=== PATIENT | female | born 1970 | race Two or more races ===

== ENCOUNTER 2017-12-25 17:15 | Emergency (ER) | payer BC ==
[~2017-12-25] VITALS: Ht 162.6 cm; Wt 59.4 kg
[2017-12-25] MEDS ORDERED: NAPR-683 PO (17:38)
[2017-12-25] MEDS ORDERED: TRAM-48 PO (17:38)
--- NOTE | 2017-12-25 17:42 | PHYS DOC ---
Adult General Chief Complaint Chief Complaint: LOWER EXT PAIN HPI HPI 47-year-old male patient complaining of right knee pain for the last 1 week that getting worse with movement. 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 She denies chest pain, chills, focal neuro deficit. Patient states she took [id number] Aleve and did not get better with her pain and rated her pain 10 over 10. Review of Systems Review of Systems Constitutional: Denies fever or chills [] Eyes: Denies change in visual acuity, redness, or eye pain [] HENT: Denies nasal congestion or sore throat [] Respiratory: Denies cough or shortness of breath [] Cardiovascular: No additional information not addressed in HPI [] GI: Denies abdominal pain, nausea, vomiting, bloody stools or diarrhea [] : Denies dysuria or hematuria [] Musculoskeletal: Denies back pain, reports joint pain [] Integument: Denies rash or skin lesions [] Neurologic: Denies headache, focal weakness or sensory changes [] Endocrine: Denies polyuria or polydipsia [] All other systems were reviewed and found to be within normal limits, except as documented in this note. Allergies Allergies Allergies Coded Allergies Type Severity Reaction Last Updated Verified povidone-iodine Allergy Intermediate rash 12/25/17 Yes soap Allergy Intermediate rash 12/25/17 Yes Physical Exam Physical Exam Constitutional: Well developed, well nourished, mild distress, non-toxic appearance. [] HENT: Normocephalic, atraumatic Eyes: PERRLA, EOMI, conjunctiva normal, no discharge. [] Neck: Normal range of motion, no tenderness, supple, no stridor. [] Cardiovascular:Heart rate regular rhythm, no murmur [] Lungs & Thorax: Bilateral breath sounds clear to auscultation [] Extremities: Right knee with [id number] effusion without deformity, painful range of motion of right knee without neurovascular deficit . Neurologic: Alert and oriented X 3, normal motor function, normal sensory function, no focal deficits noted. [] Psychologic: Affect normal, judgement normal, mood normal. [] EKG EKG [] Radiology/Procedures Radiology/Procedures [][address] [address] IMAGING REPORT Signed PATIENT: CHICO HERNANDEZ ACCOUNT: [id number] : 1970 LOCATION: ER AGE: 47 SEX: F EXAM STATUS: REG ER ORD. PHYSICIAN: AWAIS DÍAZ MD REASON: pain PROCEDURE: KNEE RIGHT 4V 4 views right knee AP lateral oblique and sunrise views HISTORY: Swelling and pain The visualized osseous structures appear normal. There is a effusion seen on lateral view. IMPRESSION: 1. No evidence of fracture. 2. Joint effusion. Consider possible ACL tear. Electronically signed by: Dalia Timmons III, MD (12/25/2017 10:26 PM) [facility] DICTATED AND SIGNED BY: DALIA TIMMONS III, MD DATE: 12/25/172223 CC: SAL HARRELL MD; AWAIS DÍAZ MD; PCP,KEERTHI ~ Course & Med Decision Making Course & Med Decision Making Pertinent Imaging studies reviewed. (See chart for details) Evaluation of patient in ER showed 47-year-old male patient with complaining of right knee pain and swelling for 1 week. Patient had right knee effusion and painful range of motion. Right knee x-ray showed joint effusion. Hussein wrap was applied and plan discharge patient home with diagnose of knee sprain. Dragon Disclaimer Dragon Disclaimer This electronic medical record was generated, in whole or in part, using a voice recognition dictation system. Departure Departure: Impression: Primary Impression: Right knee sprain Additional Impression: Knee effusion, right Disposition: 01 HOME, SELF-CARE (At 1800) Condition: IMPROVED Referrals: PCPKEERTHI (PCP) Patient Instructions: Knee Effusion, Knee Sprain Additional Instructions: Apply ice on the affected area Avoid of kneeling Follow-up with your primary care physician in 5-7 days Return to emergency room as needed Scripts Tramadol Hcl (ULTRAM) 50 Mg Tablet 50 MG PO PRN Q6HRS PRN for PAIN, #20 TAB Prov: AWAIS DÍAZ MD 12/25/17 Naproxen (NAPROSYN) 500 Mg Tablet 1 TAB PO BID, #30 TAB 1 Refill Prov: AWAIS DÍAZ MD 12/25/17 Problem Qualifiers AWAIS DÍAZ MD Dec 25, 2017 17:42 SAL HARRELL MD Dec 25, 2017 17:59
[2017-12-25] MEDS: traMADol 50 MG TABLET PO ONE (17:52)
[2017-12-25 17:55] VITALS: BP 115/83
--- NOTE | 2017-12-25 22:29 | RAD ---
4 views right knee AP lateral oblique and sunrise views HISTORY: Swelling and pain The visualized osseous structures appear normal. There is a effusion seen on lateral view. IMPRESSION: 1. No evidence of fracture. 2. Joint effusion. Consider possible ACL tear. Electronically signed by: Wilbur Harkins III, MD (12/25/2017 10:26 PM) [facility]
== END 2017-12-25 17:55 | disposition home or self-care (01) ==
LOC: ER 17:15
DX: S83.91XA Sprain of unspecified site of right knee, initial encounter (principal); X58.XXXA Exposure to other specified factors, initial encounter; Y93.89 Activity, other specified; Y99.8 Other external cause status; Y92.89 Other specified places as the place of occurrence of the external cause
CPT/HCPCS: 73564; 99284

== ENCOUNTER 2018-03-31 15:15 | Emergency (ER) | payer BC ==
[~2018-03-31] VITALS: Ht 162.6 cm; Wt 59.4 kg
[~2018-03-31 15:15] MED LIST: NAPR-683 PO; TRAM-48 PO
--- NOTE | 2018-03-31 16:12 | RAD ---
3 views right knee 03/31/2018 3:33 PM Indication: RIGHT KNEE PAIN, FELT A POP Comparison: None Findings: There is no acute fracture or dislocation. Articular surfaces are uninterrupted and smooth. Soft tissues are unremarkable. Impression: No evidence of acute osseous abnormality. Electronically signed by: Greg Peterson MD (03/31/2018 4:08 PM) [facility]
--- NOTE | 2018-03-31 16:25 | PHYS DOC ---
Past History Past Medical History: Bipolar, Depression, Hepatitis Past Surgical History: Cancer Surgery, Alcohol Use: None Drug Use: Marijuana Adult General Chief Complaint Chief Complaint: KNEE INJURY HPI HPI 47-year-old female presents with right knee pain. The patient works as a utility locate technician. She is up and down off of her knees all the time. She states that she was doing some work on the ground and was shifting laterally when she had a sudden pop feeling in her right knee. She has had this in the past but it usually goes away within a couple minutes. This time the pain is lasted more than an hour. She was unable to continue to work. She is able to walk. Patient has known osteoporosis and was concerned for a fracture. She denies any other injuries or complaints. Review of Systems Review of Systems Constitutional: Denies fever or chills [] Eyes: Denies change in visual acuity, redness, or eye pain [] HENT: Denies nasal congestion or sore throat [] Respiratory: Denies cough or shortness of breath [] Cardiovascular: No additional information not addressed in HPI [] GI: Denies abdominal pain, nausea, vomiting, bloody stools or diarrhea [] : Denies dysuria or hematuria [] Musculoskeletal: Right knee pain.[] Integument: Denies rash or skin lesions [] Neurologic: Denies headache, focal weakness or sensory changes [] Endocrine: Denies polyuria or polydipsia [] All other systems were reviewed and found to be within normal limits, except as documented in this note. Allergies Allergies Allergies Coded Allergies Type Severity Reaction Last Updated Verified povidone-iodine Allergy Intermediate rash 03/31/18 Yes soap Allergy Intermediate rash 03/31/18 Yes aspirin Allergy Unknown 03/31/18 Yes Physical Exam Physical Exam Constitutional: Well developed, well nourished, no acute distress, non-toxic appearance. [] HENT: Normocephalic, atraumatic, bilateral external ears normal, oropharynx moist, no oral exudates, nose normal. [] Eyes: PERRLA, EOMI, conjunctiva normal, no discharge. [] Neck: Normal range of motion, no tenderness, supple, no stridor. [] Cardiovascular:Heart rate regular rhythm, no murmur [] Lungs & Thorax: Bilateral breath sounds clear to auscultation [] Abdomen: Bowel sounds normal, soft, no tenderness, no masses, no pulsatile masses. [] Skin: Warm, dry, no erythema, no rash. [] Back: No tenderness, no CVA tenderness. [] Extremities: Right medial knee with slight edema. No ecchymosis or obvious deformity. Ligaments are stable. Pain with compression of the patella[] Neurologic: Alert and oriented X 3, normal motor function, normal sensory function, no focal deficits noted. [] Psychologic: Affect normal, judgement normal, mood normal. [] Current Patient Data Vital Signs Vital Signs Date Time Temp Pulse Resp B/P (MAP) Pulse Ox O2 Delivery O2 Flow Rate FiO2 03/31/18 15:15 98.0 72 18 97 Room Air EKG EKG [] Radiology/Procedures Radiology/Procedures [] Impressions: 3 views right knee 03/31/2018 3:33 PM Indication: RIGHT KNEE PAIN, FELT A POP Comparison: None Findings: There is no acute fracture or dislocation. Articular surfaces are uninterrupted and smooth. Soft tissues are unremarkable. Impression: No evidence of acute osseous abnormality. Electronically signed by: Greg Wesley MD (03/31/2018 4:08 PM) [facility] DICTATED AND SIGNED BY: GREG WELSEY MD DATE: 03/31/18 1607 CC: SHADIA SALAMANCA DO; PCP,KEERTHI ~ Course & Med Decision Making Course & Med Decision Making Pertinent Labs and Imaging studies reviewed. (See chart for details) The patient's x-rays negative. I believe she just has a contusion from shifting her weight on her knee. Given her directions for mechanics and how to minimize pressure on her knees while working. She is stable for discharge at this time. [] Dragon Disclaimer Dragon Disclaimer This electronic medical record was generated, in whole or in part, using a voice recognition dictation system. Departure Departure: Referrals: PCP,NO (PCP) SHADIA SALAMANCA DO Mar 31, 2018 16:25
[2018-03-31 16:55] VITALS: BP 107/73
== END 2018-03-31 16:55 | disposition home or self-care (01) ==
LOC: ER 15:15
DX: M25.561 Pain in right knee (principal); G89.11 Acute pain due to trauma; R60.0 Localized edema; Z88.6 Allergy status to analgesic agent; Z88.8 Allergy status to other drugs, medicaments and biological substances; Z91.041 Radiographic dye allergy status; X50.0XXA Overexertion from strenuous movement or load, initial encounter; Y93.89 Activity, other specified; Y92.89 Other specified places as the place of occurrence of the external cause; Y99.0 Civilian activity done for income or pay
CPT/HCPCS: 73564; 99284

== ENCOUNTER 2018-04-17 14:22 | Emergency (ER) | payer OTHER, BC ==
[~2018-04-17] VITALS: Ht 162.6 cm; Wt 59.4 kg
--- NOTE | 2018-04-17 14:41 | PHYS DOC ---
Past History Past Medical History: Bipolar, Depression, Hepatitis Past Surgical History: Cancer Surgery, Alcohol Use: None Drug Use: Marijuana Adult General Chief Complaint Chief Complaint: FOOT INJURY PAIN HPI HPI 47-year-old female presents emergency department after stepping on a curve yesterday and injuring her right ankle and foot. She's had sharp pain in the ankle and foot since the event. It is moderate nonradiating pain that is worse when she walks. She was able to ambulate after the event and denies any proximal pain in her hip. She denies any pain in her knee either. Review of Systems Review of Systems Review of systems is negative for knee pain or hip pain proximally. Negative for abdominal pain head injury or loss of consciousness. All other review of systems is negative. Current Medications Current Medications Current Medications Medications (Trade) Dose Ordered Sig/Christopher Start Time Stop Time Status Last Admin Dose Admin Acetaminophen (Tylenol) 650 mg 1X ONCE 04/17/18 14:45 04/17/18 14:46 UNV Allergies Allergies Allergies Coded Allergies Type Severity Reaction Last Updated Verified povidone-iodine Allergy Intermediate rash 03/31/18 Yes soap Allergy Intermediate rash 03/31/18 Yes aspirin Allergy Unknown 03/31/18 Yes Physical Exam Physical Exam Constitutional: Well developed, well nourished, no acute distress, non-toxic appearance. [] HENT: Normocephalic, atraumatic, bilateral external ears normal, oropharynx moist, no oral exudates, nose normal. [] Eyes: PERRLA, EOMI, conjunctiva normal, no discharge. [] Neck: Normal range of motion, no tenderness, supple, no stridor. [] Cardiovascular:Heart rate regular rhythm, no murmur [] Lungs & Thorax: Bilateral breath sounds clear to auscultation [] Abdomen: Bowel sounds normal, soft, no tenderness, no masses, no pulsatile masses. [] Skin: Warm, dry, no erythema, no rash. [] Back: No tenderness, no CVA tenderness. [] Extremities: On examination of the right lower extremity she has a normal- appearing foot and ankle with normal temperature to touch. No abrasions lacerations or ecchymosis. Tender along the dorsum of the foot in the distal foot, nontender in the mid and proximal foot, and tender in the lateral ankle. Patient describes a tingling sensation in the third and fourth phalanx of the right foot. Calf is nontender to touch. Proximal fibula is nontender. Knee is normal range of motion without pain. The remainder the extremities are unremarkable. The remainder the extremities are neurovascularly intact and nontender. Neurologic: Alert and oriented X 3, normal motor function, normal sensory function, no focal deficits noted. [] Psychologic: Affect normal, judgement normal, mood normal. [] EKG EKG [] Radiology/Procedures Radiology/Procedures [] Course & Med Decision Making Course & Med Decision Making Pertinent Labs and Imaging studies reviewed. (See chart for details) X-rays unremarkable. We will give the patient an ankle brace. rice therapy. f/u with pcp in 4-5 days for reexamination. Dragon Disclaimer Dragon Disclaimer This electronic medical record was generated, in whole or in part, using a voice recognition dictation system. Departure Departure: Impression: Primary Impression: Right ankle injury Additional Impression: Injury of right ankle and foot Disposition: HOME, SELF-CARE Condition: STABLE Referrals: PCP,KEERTHI (PCP) SHERRON COLON DO follow up in 4-5 days for reexamination Patient Instructions: Ankle Sprain, [id number], RICE - Routine Care for Injuries Additional Instructions: Thank you for allowing us to participate in your care today. Return to the emergency department you have any new or worsening symptoms, or if you are concerned for any reason. Return to emergency department if you have any new or concerning symptoms including but not limited to fever, chills, nausea, vomiting, intractable pain, any new rashes, chest pain, shortness of air , uncontrolled bleeding, difficulty breathing, and/or vision loss. Follow up with your primary care physician within 3 days. Call your Primary Doctor tomorrow and inform them of your visit today. If you do not have a primary care provider we are happy to provide you with a list of our primary care providers contact information. This condition should be evaluated by your primary care physician and any recommended consulting services for continued management within 2-3 days after discharge. If at any time, you are having difficulty getting into your primary care doctor or a specialist, return to the emergency department. Problem Qualifiers DEBORAH BRANDT MD Apr 17, 2018 14:41
[2018-04-17] MEDS ORDERED: ACETAMINOPHEN 325 MG TABLET PO ONE (14:45)
--- NOTE | 2018-04-17 14:58 | RAD ---
Two-view right tibia-fibula and three-view right ankle and three-view right foot dated 04/17/2018. No comparison available. CLINICAL INDICATION: Pain after injury. FINDINGS: 2 views right tibia-fibula show normal bony alignment. No displaced fracture. No acute osseous or articular abnormality. No periostitis or bone destruction. 3 views of right ankle show normal bony alignment. No displaced fracture. No acute osseous or articular abnormality. Talar dome is intact. 3 views of right foot show normal bony alignment. No displaced fracture. No acute osseous or articular abnormality. IMPRESSION: No acute findings. Electronically signed by: Quinn Orona MD (04/17/2018 2:55 PM) [facility]
[2018-04-17 15:15] VITALS: BP 118/88
== END 2018-04-17 15:19 | disposition home or self-care (01) ==
LOC: ER 14:22
DX: S99.911A Unspecified injury of right ankle, initial encounter (principal); S99.921A Unspecified injury of right foot, initial encounter; Z88.6 Allergy status to analgesic agent; Z91.041 Radiographic dye allergy status; Z88.8 Allergy status to other drugs, medicaments and biological substances; W22.8XXA Striking against or struck by other objects, initial encounter; Y93.89 Activity, other specified; Y92.89 Other specified places as the place of occurrence of the external cause; Y99.8 Other external cause status
CPT/HCPCS: 73590; 73610; 73630; 99284

== ENCOUNTER 2018-08-01 12:57 | Emergency (ER) | payer BC, OTHER ==
[~2018-08-01] VITALS: Ht 162.6 cm; Wt 64.4 kg
--- NOTE | 2018-08-01 13:30 | RAD ---
EXAM: Head CT without contrast. HISTORY: Right-sided facial numbness. TECHNIQUE: Computed tomographic images of the head were obtained without contrast. *One or more of the following individualized dose reduction techniques were utilized for this examination: 1. Automated exposure control. 2. Adjustment of the mA and/or kV according to patient size. 3. Use of iterative reconstruction technique. COMPARISON: None. FINDINGS: There is no acute or subacute extra-axial or intraparenchymal hemorrhage. There is no mass effect or midline shift. There is no hydrocephalus. The haney-white matter differentiation pattern is intact. The visualized portions of the orbits, paranasal sinuses and mastoid air cells are unremarkable. No suspicious calvarial lesion is seen. IMPRESSION: No acute intracranial findings. Note is made that MRI is more sensitive for acute infarction. Electronically signed by: Sandy Rhoades MD (08/01/2018 1:26 PM) [facility]
--- NOTE | 2018-08-01 13:40 | PHYS DOC ---
Past History Past Medical History: Bipolar, Depression, Hepatitis, Other Past Surgical History: Cancer Surgery, , Tubal ligation Alcohol Use: None Drug Use: Marijuana Adult General Chief Complaint Chief Complaint: WEAKNESS/GENERALIZED HPI HPI 47-year-old female presents with right-sided facial numbness and generally feeling "strange". The patient states she woke up around 7:30 this morning and felt normal. While she was in the shower around 10:30 she began to feel like the right side of her face felt funny. She touched her face and noticed that her sensation seemed to be dull on that side. Just prior to this feeling, she had a right-sided occipital headache. She felt like she could feel a bump on her scalp that is tender and assumed was related to this. Headache is improved at this time but that spot on her scalp is sensitive. She still feels like she has decreased sensation on the right side of her face. She denies change in voice or facial droop. Her daughter who accompanies her agrees. The patient also believes that the vision in her right eye is blurry. This seems to come and go over the last few hours. She's had some increased tearing, but no pain. The patient tells me that she has been feeling more forgetful the last couple of days. She has been working a lot as a marine engineer. She was told she had a "small stroke" when she was 33. She does not believe she has had any deficits after that. She denies fever or chills. She has not been feeling ill prior to today. Review of Systems Review of Systems Constitutional: Denies fever or chills [] Eyes: Change in visual acuity [] HENT: Denies nasal congestion or sore throat [] Respiratory: Denies cough or shortness of breath [] Cardiovascular: No additional information not addressed in HPI [] GI: Denies abdominal pain, nausea, vomiting, bloody stools or diarrhea [] : Denies dysuria or hematuria [] Musculoskeletal: Denies back pain or joint pain [] Integument: Decreased sensation right side of face[] Neurologic: Denies headache, focal weakness[] Endocrine: Denies polyuria or polydipsia [] All other systems were reviewed and found to be within normal limits, except as documented in this note. Allergies Allergies Allergies Coded Allergies Type Severity Reaction Last Updated Verified povidone-iodine Allergy Intermediate rash 03/31/18 Yes soap Allergy Intermediate rash 03/31/18 Yes aspirin Allergy Unknown 03/31/18 Yes Physical Exam Physical Exam Constitutional: Well developed, well nourished, no acute distress, non-toxic appearance. [] HENT: Normocephalic, atraumatic, bilateral external ears normal, oropharynx moist, no oral exudates, nose normal. [] Eyes: PERRLA, EOMI, conjunctiva normal, no discharge. [] Neck: Normal range of motion, no tenderness, supple, no stridor. [] Cardiovascular:Heart rate regular rhythm, no murmur [] Lungs & Thorax: Bilateral breath sounds clear to auscultation [] Abdomen: Bowel sounds normal, soft, no tenderness, no masses, no pulsatile masses. [] Skin: Warm, dry, no erythema, no rash. [] Back: No tenderness, no CVA tenderness. [] Extremities: No tenderness, no cyanosis, no clubbing, ROM intact, no edema. [] Neurologic: Alert and oriented X 3, right-sided ataxia the upper and lower extremity, decreased sensation right side of face. See NIH stroke scale included in this visit for more details.[] Psychologic: Affect normal, judgement normal, mood normal. [] Current Patient Data Lab Results Laboratory Tests Test 08/01/18 13:15 Glucose (Fingerstick) 85 mg/dL (70-99) EKG EKG [] Radiology/Procedures Radiology/Procedures [] Impressions: EXAM: Head CT without contrast. HISTORY: Right-sided facial numbness. TECHNIQUE: Computed tomographic images of the head were obtained without contrast. *One or more of the following individualized dose reduction techniques were utilized for this examination: 1. Automated exposure control. 2. Adjustment of the mA and/or kV according to patient size. 3. Use of iterative reconstruction technique. COMPARISON: None. FINDINGS: There is no acute or subacute extra-axial or intraparenchymal hemorrhage. There is no mass effect or midline shift. There is no hydrocephalus. The haney-white matter differentiation pattern is intact. The visualized portions of the orbits, paranasal sinuses and mastoid air cells are unremarkable. No suspicious calvarial lesion is seen. IMPRESSION: No acute intracranial findings. Note is made that MRI is more sensitive for acute infarction. Electronically signed by: Sandy Vidal MD (08/01/2018 1:26 PM) [facility] DICTATED AND SIGNED BY: SANDY VIDAL MD DATE: 08/01/18 6955 CC: SHADIA SALAMANCA DO; JOHANNY DAVEY Course & Med Decision Making Course & Med Decision Making Pertinent Labs and Imaging studies reviewed. (See chart for details) Based on the patient's INH stroke scale, her score is 4. She has right-sided ataxia, right-sided visual field deficit, right facial decreased sensation though not absent. It has been greater than 3 hours since the patient was confirmed "normal". The patient's head CT is negative for acute findings. I discussed the patient with Dr. Fallon and Dr. Quinteros. Dr. Quinteros would like the patient have an MRI if they can be done today. We will elect confirmed with radiology they couldn't complete the MRI today. Dr. Davenport has accepted the patient for transfer and admission at [facility]. The patient is in agreement with this plan. She will go by ambulance. 35 minutes of critical care time was spent on this patient exclusive of other billable procedures. [] Dragon Disclaimer Dragon Disclaimer This electronic medical record was generated, in whole or in part, using a voice recognition dictation system. Departure Departure: Impression: Primary Impression: Ataxia Additional Impressions: Visual disturbance Facial nerve sensory disorder CVA (cerebral vascular accident) Disposition: XFER [facility] Condition: STABLE Referrals: JOHANNY DAVEY (PCP) Problem Qualifiers Additional Impressions: CVA (cerebral vascular accident) CVA mechanism: unspecified Qualified Codes: I63.9 - Cerebral infarction, unspecified SHADIA SALAMANCA DO Aug 01, 2018 13:40
[2018-08-01 13:45] LABS: BASO % 1 % (0-3); EOS # 0.2 x10^3/uL (0.0-0.7); EOS % 3 % (0-3); HEMOGLOBIN 12.6 g/dL (12.0-15.5); LYMPH # 2.2 x10^3/uL (1.0-4.8); LYMPH % 40 % (24-48); MEAN CORPUSCULAR HEMOGLOBIN 30 pg (25-35); MEAN CORPUSCULAR HGB CONC 33 g/dL (31-37); MEAN CORPUSCULAR VOLUME 91 fL (79-100); MONO # 0.4 x10^3/uL (0.0-1.1); MONO % 7 % (0-9); NEUT # 2.7 x10^3uL (1.8-7.7); NEUT % 49 % (31-73); PLATELET COUNT 253 x10^3/uL (140-400); RED BLOOD COUNT 4.19 x10^6/uL (3.50-5.40); RED CELL DISTRIBUTION WIDTH 13.2 % (11.5-14.5); WHITE BLOOD COUNT 5.6 x10^3/uL (4.0-11.0)
[2018-08-01 13:59] LABS: ALBUMIN 3.6 g/dL (3.4-5.0); ALBUMIN/GLOBULIN RATIO 0.9 (1.0-1.7); CALCIUM 8.7 mg/dL (8.5-10.1); CREATININE 0.6 mg/dL (0.6-1.0); GFR 106.3; TOTAL BILIRUBIN 0.3 mg/dL (0.2-1.0); TOTAL PROTEIN 7.4 g/dL (6.4-8.2)
[2018-08-01 14:33] VITALS: BP 107/66
== END 2018-08-01 15:10 | disposition short-term general hospital (02) ==
LOC: ER 12:57
DX: I63.9 Cerebral infarction, unspecified (principal); R27.0 Ataxia, unspecified; H53.9 Unspecified visual disturbance; G51.9 Disorder of facial nerve, unspecified; Z88.6 Allergy status to analgesic agent; Z91.041 Radiographic dye allergy status; Z91.048 Other nonmedicinal substance allergy status
CPT/HCPCS: 36415; 70450; 80053; 82947; 85025; 85610; 85730; 99285